=== PATIENT | male | born 1995 | race Caucasian/White ===

== ENCOUNTER 2016-04-27 19:29 | Emergency (ER) | payer OTHER ==
--- NOTE | 2016-04-27 19:41 | EDPHY ---
H & P Stated Complaint: 1030: PLAYING BASKETBALL/DID A LAY-UP, CAME DOWN HARD, NOW LOW BACK PAIN Time Seen by Provider: 04/27/16 19:41 - Personal History Current Tetanus/Diphtheria Vaccine: Yes - Medical/Surgical History Hx Asthma: No Hx Chronic Respiratory Disease: No Hx Diabetes: No Hx Cardiac Disease: No Hx Renal Disease: No Hx Cirrhosis: No Hx Alcoholism: No Hx HIV/AIDS: No Hx Splenectomy or Spleen Trauma: No Other PMH: FX WRIST, SURGERY FOR TORN GROIN - Social History Smoking Status: Former smoker Constitutional: Initial Vital Signs Temperature (C) 36.7 C 04/27/16 19:33 Heart Rate 103 H 04/27/16 19:33 Respiratory Rate 22 H 04/27/16 19:33 Blood Pressure 146/83 H 04/27/16 19:33 O2 Sat (%) 92 04/27/16 19:33 O2 Delivery Mode Room Air Allergies/Adverse Reactions: No Known Allergies Allergy (Unverified 04/27/16 19:32) Home Medications: Medication Instructions Recorded Hydrocodone/APAP 5/325 [[place] 1 - 2 each PO Q4-6PRN PRN #20 tab 04/27/16 5/325] Hydrocodone/APAP 5/325 [[place] 1 - 2 each PO Q4-6PRN PRN #20 tab 04/27/16 5/325] Medical Decision Making ED Course/Re-evaluation: CHIEF COMPLAINT: Back pain HISTORY OF PRESENT ILLNESS: The patient is a 20 y/o male arriving with his friend complaining of lower back pain and spasm secondary to a fall earlier today around 10:30, 10 hours ago. He was playing basketball, went up for a lay- up, then landed hard on his coccyx. He initially felt okay and was able to continue the day without much issue until tonight. He now complains of significant spasm and pain in his lumbar and gluteal region. He denies weakness , paresthesias, incontinence, or difficulty walking. No other injuries. REVIEW OF SYSTEMS: A 10 point review of systems was performed and is negative with the exception of the elements mentioned in the history of present illness. PHYSICAL EXAM: HR, BP, O2 Sat, RR. Temp noted General Appearance: Alert, well hydrated, appropriate, and non-toxic appearing. Head: Atraumatic without scalp tenderness or obvious injury Eyes: Pupils equal, round, reactive to light and accommodation, EOMI, no trauma , no injection. Ears: Clear bilaterally, no perforation, normal landmarks Nose: Atraumatic, no rhinorrhea, clear. Throat: There is no erythema or exudates, no lesions, normal tonsils, mucus membranes moist. Neck: Supple, 2+ carotid upstroke, nontender, no lymphadenopathy. Respiratory: No retractions, no distress, no wheezes, and no accessory muscle use. Lungs are clear to auscultation bilaterally. Cardiovascular: Regular rate and rhythm, no murmurs, rubs, or gallops. Bilateral carotid, radial, dorsalis pedis, and posterior tibial pulses intact. Good capillary refill all extremities. Gastrointestinal: Abdomen is soft, nontender, non-distended, no masses, no rebound, no guarding, no peritoneal signs. Musculoskeletal: Normal active ROM of all extremities, atraumatic. Neurological: Alert, appropriate, and interactive. The patient has normal DTRs and non-focal cranial nerves, motor, sensory, and cerebellar exam. Skin: No rashes, good turgor, no nodules on palpation. Past medical history: Denies Past surgical history: Denies Family history: Noncontributory Social history: Friend at bedside. Smoker. DIAGNOSTICS/PROCEDURES/CRITICAL CARE TIME: Study: Lumbar spine x-ray Indication: trauma, pain Results: Lumbar x-ray was obtained. The results of the study are nothing acute. The study was read by the radiologist, Dr. Aiken. I viewed the images myself on the PACS system. Study: Coccyx x-ray Indication: trauma, pain Results: Coccyx x-ray was obtained. The results of the study are nothing acute. The study was read by the radiologist, Dr. Aiken. I viewed the images myself on the PACS system. DIFFERENTIAL DIAGNOSIS: The differential diagnosis for the patient's trauma included but was not limited to intracranial injury, long bone and pelvic bone fractures, spinal injury, intra-abdominal injury, and intra-thoracic injury. MEDICAL DECISION MAKING: This is a healthy 20 y/o male presenting with lumbar pain and spasm secondary to a fall onto his coccyx earlier in the day. He has no reproducible pain on exam and denies radiculopathy or bowel/bladder dysfunction. His neuro exam is normal. Plan for x-rays of his lumbar and coccyx spine to rule out bony process. X-rays are negative. I discussed this with the patient. He will be discharged with Vicodin for pain and referral to PCP for follow up as needed. He is comfortable with this plan. Departure - Departure Disposition: Home, Routine, Self-Care Clinical Impression: Back pain Qualifiers: Back pain location: low back pain Chronicity: acute Back pain laterality: bilateral Sciatica presence: without sciatica Qualifier Code: (M54.5) Low back pain Condition: Good Instructions: Back Pain (ED) Additional Instructions: 1. Take Vicodin as prescribed when needed for pain. Expect to be more sore tomorrow. 2. Use 600mg ibuprofen every 6-8 hours for the next 2-3 days. 3. Follow up with your primary care provider for symptoms not improved over the next week. Referrals: [facility] [Outside] - As per Instructions Prescriptions: Hydrocodone/APAP 5/325 [[place] 5/325] 1 - 2 each PO Q4-6PRN PRN #20 tab PRN Reason: Pain, Moderate Report Scribed for: Juancarlos Rodriguez Report Scribed by: Pau Oakley Date of Report: 04/27/16 Time of Report: 19:50
[2016-04-27] MEDS ORDERED: HYDROCOD/APAP 5/325 PREPACK#6 BTL TAKEHOME ONE ×2 (19:50→20:18)
--- NOTE | 2016-04-27 20:26 | DX ---
Sacrum, Three Views History: Fall. Pain. Findings: No evidence for a fracture. Normal mineralization and alignment. No significant osseous abnormality. Impression: Unremarkable sacrum and coccyx, without evidence for a fracture. Lumbar Spine, Two Views History: Fall. Pain. Findings: Five lumbar-type vertebral bodies are visualized. No evidence for a fracture or subluxati on. Disk heights are maintained. On the AP view, there appears to be sclerosis at the sacroiliac salome ints but on the dedicated views obtained of the sacrum it has a more normal appearance and so, theref ore, likely sacroiliitis. Impression: No evidence for an acute fracture. E:thiago
[2016-04-27 20:45] VITALS: BP 147/69; PULSE 110; RESP 16; TEMP 97.7; O2SAT 94
== END 2016-04-27 20:45 | disposition home or self-care (01) ==
DX: S39.92XA Unspecified injury of lower back, initial encounter (principal); Z87.891 Personal history of nicotine dependence; W18.39XA Other fall on same level, initial encounter; Y99.8 Other external cause status; Y93.67 Activity, basketball

== ENCOUNTER 2016-05-11 23:05 | Emergency (ER) | payer OTHER ==
[2016-05-11 23:13] VITALS: TEMP 99.5
[2016-05-11] MEDS ORDERED: ONDANSETRON 4 MG/2 ML VIAL IVP ONE (23:25)
[2016-05-11] MEDS ORDERED: NS 1,000 ML IV ONE (23:25)
[2016-05-11 23:31] LABS: % IMMATURE GRANULYOCYTES 0.5 % (0.0-1.1); ABSOLUTE IMMATURE GRANULOCYTES 0.09 10^3/uL (0.00-0.10); ADD DIFF? NO; ADD MORPH? NO; ADD SCAN? NO; ATYPICAL LYMPHOCYTE FLAG 20 (0-99); FRAGMENT RBC FLAG 0 (0-99); HEMATOCRIT 42.4 % (40.0-51.0); HEMOGLOBIN 14.9 g/dL (13.7-17.5); LEFT SHIFT FLG 10 (0-99); LIPEMIA HEMOLYSIS FLAG 90 (0-99); MEAN CELL HEMOGLOBIN 30.1 pg (27.9-34.1); MEAN CELL HEMOGLOBIN CONCENTR. 35.1 g/dL (32.4-36.7); MEAN CELL VOLUME 85.7 fL (81.5-99.8); MEAN PLATELET VOLUME 9.6 fL (8.7-11.7); PLATELET CLUMPS FLAG 0 (0-99); PLATELET COUNT 242 10^3/uL (150-400); RED BLOOD CELL COUNT 4.95 10^6/uL (4.40-6.38); RED CELL DISTRIBUTION WIDTH 12.7 % (11.5-15.2)
--- NOTE | 2016-05-11 23:32 | EDPHY ---
H & P Stated Complaint: NVD and CM x 3 days Time Seen by Provider: 05/11/16 23:17 HPI/ROS: Chief complaint: Nausea, vomiting, diarrhea, headache HPI: 20-year-old male presenting with 3 days of nausea, vomiting, diarrhea and headache. Patient was initially seen at [facility] yesterday. He was told he had a bacterial infection and was prescribed antibiotics but has not had a chance to get this filled. He has had several days of cough with some whitish yellowish sputum. Some subjective fevers and chills. Has had nausea and vomiting yesterday with some diarrhea it yesterday, worsening today. Patient states that after 8 o'clock this evening he has been to the bathroom about 10 times. No blood or melena. No hematemesis. He does live in a fraternity house has been exposed to other similar symptoms. Headache is generalized and described as a 3 to 4/10. Did not his head. No numbness tingling. No other neurologic symptoms. ROS: 10 point Review of Systems is negative except as noted in the HPI. Past medical history: None Medications: None Allergies: No known drug allergies Physical exam: Gen: Awake, Alert, No Distress HEENT: Nose: no rhinorrhea Eyes: PERRLA, EOMI Mouth: Dry mucous membranes Neck: Supple, no JVD Chest: nontender, lungs clear to auscultation Heart: S1, S2 normal, no murmur Abd: Soft, non-tender, no guarding Back: no CVA tenderness, no midline tenderness Ext: no edema, non-tender Skin: no rash Neuro: CN II-XII intact, Sensation grossly intact, Strength 5/5 in bilateral upper and lower extremities - Personal History Current Tetanus Diphtheria and Acellular Pertussis (TDAP): Yes - Medical/Surgical History Hx Asthma: No Hx Chronic Respiratory Disease: No Hx Diabetes: No Hx Cardiac Disease: No Hx Renal Disease: No Hx Cirrhosis: No Hx Alcoholism: No Hx HIV/AIDS: No Hx Splenectomy or Spleen Trauma: No Other PMH: FX WRIST, SURGERY FOR TORN GROIN - Social History Smoking Status: Former smoker Constitutional: Initial Vital Signs Temperature (C) 37.5 C 05/11/16 23:10 Heart Rate 114 H 05/11/16 23:10 Respiratory Rate 20 05/11/16 23:10 Blood Pressure 161/92 H 05/11/16 23:10 O2 Sat (%) 96 05/11/16 23:10 O2 Delivery Mode Room Air Allergies/Adverse Reactions: No Known Allergies Allergy (Verified 05/11/16 23:12) Home Medications: Medication Instructions Recorded Hydrocodone/APAP 5/325 [[place] 1 - 2 each PO Q4-6PRN PRN #20 tab 04/27/16 5/325] Hydrocodone/APAP 5/325 [[place] 1 - 2 each PO Q4-6PRN PRN #20 tab 04/27/16 5/325] Ondansetron Odt [Zofran Odt 4 mg 4 mg PO Q4 PRN #10 tab 05/12/16 (*)] Medical Decision Making ED Course/Re-evaluation: 20-year-old male presenting with flu-like symptoms. Does have some erythema in pharyngeal exudate. Monospot is positive however the patient states he has pus tested positive for mono a year ago and I suspect he might have a carrier status. Symptoms are consistent with influenza. He does have a leukocytosis of monocytes. The bus supporting the possibility of mononucleosis. He does not have a neutrophilia. His abdomen is soft and nonfocal. He has gotten fluids, steroid it antipyretics. In addition to nausea medication. Will discharge with follow up with the [facility], return for worsening. - Data Points Laboratory Results: Laboratory Results 05/11/16 23:19 05/11/16 23:19 05/11/16 05/11/16 05/11/16 23:19 23:19 23:19 WBC 17.56 10^3/uL H 10^3/uL (3.80-9.50) RBC 4.95 10^6/uL 10^6/uL (4.40-6.38) Hgb 14.9 g/dL g/dL (13.7-17.5) Hct 42.4 % % (40.0-51.0) MCV 85.7 fL fL (81.5-99.8) MCH 30.1 pg pg (27.9-34.1) MCHC 35.1 g/dL g/dL (32.4-36.7) RDW 12.7 % % (11.5-15.2) Plt Count 242 10^3/uL 10^3/uL (150-400) MPV 9.6 fL fL (8.7-11.7) Neut % (Auto) 72.7 % % (39.3-74.2) Lymph % (Auto) 13.0 % L % (15.0-45.0) [place] % (Auto) 13.5 % H % (4.5-13.0) Eos % (Auto) 0.0 % L % (0.6-7.6) Baso % (Auto) 0.3 % % (0.3-1.7) Nucleat RBC Rel Count 0.0 % % (0.0-0.2) Absolute Neuts (auto) 12.76 10^3/uL H 10^3/uL (1.70-6.50) Absolute Lymphs (auto) 2.28 10^3/uL 10^3/uL (1.00-3.00) Absolute Monos (auto) 2.37 10^3/uL H 10^3/uL (0.30-0.80) Absolute Eos (auto) 0.00 10^3/uL L 10^3/uL (0.03-0.40) Absolute Basos (auto) 0.06 10^3/uL 10^3/uL (0.02-0.10) Absolute Nucleated RBC 0.00 10^3/uL 10^3/uL (0-0.01) Immature Gran % 0.5 % % (0.0-1.1) Immature Gran # 0.09 10^3/uL 10^3/uL (0.00-0.10) Sodium 132 mEq/L L mEq/L (134-144) Potassium 3.6 mEq/L mEq/L (3.5-5.2) Chloride 95 mEq/L L mEq/L (97-110) Carbon Dioxide 21 mEq/l L mEq/l (22-31) Anion Gap 16 mEq/L mEq/L (8-16) BUN 9 mg/dL mg/dL (7-23) Creatinine 0.9 mg/dL mg/dL (0.7-1.3) Estimated GFR > 60 Glucose 116 mg/dL H mg/dL (70-100) Calcium 9.4 mg/dL mg/dL (8.5-10.4) Total Bilirubin 1.0 mg/dL mg/dL (0.1-1.4) Conjugated Bilirubin 0.5 mg/dL mg/dL (0.0-0.5) Unconjugated Bilirubin 0.5 mg/dL mg/dL (0.0-1.1) AST 32 IU/L IU/L (17-59) ALT 36 IU/L IU/L (21-72) Alkaline Phosphatase 99 IU/L IU/L (38-126) Total Protein 8.7 g/dL H g/dL (6.3-8.2) Albumin 4.8 g/dL g/dL (3.5-5.0) Lipase 57.0 IU/L IU/L (23-300) Monoscreen POSITIVE H (NEGATIVE) Medications Given: Discontinued Medications Sodium Chloride (Ns) 1,000 mls @ 0 mls/hr IV ONCE ONE PRN Reason: Wide Open Stop: 05/11/16 23:26 Last Admin: 05/12/16 00:00 Dose: 1,000 mls Ondansetron HCl (Zofran) 4 mg IVP EDNOW ONE Stop: 05/11/16 23:26 Last Admin: 05/12/16 00:14 Dose: 4 mg Departure - Departure Disposition: Home, Routine, Self-Care Clinical Impression: Flu-like symptoms, Dehydration, Nausea & vomiting, Fever Condition: Good Instructions: Fever in Adults (ED), Gastroenteritis (ED), Acute Nausea and Vomiting (ED) Additional Instructions: Alternate ibuprofen and acetaminophen every 4 hours for aches, pains, and fever. You may take ondansetron for nausea and vomiting. Drink plenty of fluids. Follow up with [facility] in 2-3 days if symptoms are not improving. Return emergency department if symptoms are worsening. Referrals: Patient,NotPresent [Unknown] - As per Instructions [facility] [Outside] - As per Instructions Prescriptions: Ondansetron Odt [Zofran Odt 4 mg (*)] 4 mg PO Q4 PRN #10 tab PRN Reason: nausea
[2016-05-11] MEDS ORDERED: IBUPROFEN 600 MG TAB PO ONE (23:45)
[2016-05-11 23:55] LABS: ALANINE AMINOTRANSFERASE 36 IU/L (21-72); ALBUMIN 4.8 g/dL (3.5-5.0); ALKALINE PHOSPHATASE 99 IU/L (38-126); ANION GAP 16 mEq/L (8-16); ASPARTATE AMINOTRANSFERASE 32 IU/L (17-59); BILIRUBIN-CONJUGATED 0.5 mg/dL (0.0-0.5); BILIRUBIN-UNCONJUGATED 0.5 mg/dL (0.0-1.1); CALCIUM 9.4 mg/dL (8.5-10.4); CARBON DIOXIDE 21 mEq/l (22-31); CHLORIDE 95 mEq/L (97-110); CREATININE 0.9 mg/dL (0.7-1.3); GLOMERULAR FILTRATION RATE > 60; GLUCOSE 116 mg/dL (70-100); POTASSIUM 3.6 mEq/L (3.5-5.2); SODIUM 132 mEq/L (134-144); TOTAL PROTEIN 8.7 g/dL (6.3-8.2)
[2016-05-12] MEDS ORDERED: ONDANSETRON 4MG PREPACK#2 BTL TAKEHOME ONE (01:28)
[2016-05-12] MEDS ORDERED: DEXAMETHASONE 4 MG TAB PO ONE (01:29)
[2016-05-12] MEDS ORDERED: DEXAMETHASONE 10 MG/ML VIAL ONE (01:48)
[2016-05-12 02:21] VITALS: BP 144/68; PULSE 100; RESP 18; O2SAT 94
== END 2016-05-12 02:47 | disposition home or self-care (01) ==
DX: R11.2 Nausea with vomiting, unspecified (principal); J11.1 Influenza due to unidentified influenza virus with other respiratory manifestations; Z87.891 Personal history of nicotine dependence
CPT/HCPCS: 96374; J2405

== ENCOUNTER 2018-01-03 21:46 | Emergency (ER) | payer OTHER ==
[2018-01-03] MEDS ORDERED: NS 1,000 ML IV ONE (22:10)
[2018-01-03 22:30] LABS: PLATELET COUNT 352 10^3/uL (150-400)
--- NOTE | 2018-01-03 23:09 | EDPHY ---
H & P Stated Complaint: had one beer vomited and syncope episode x2 lasting 2 min Time Seen by Provider: 01/03/18 22:09 HPI/ROS: CHIEF COMPLAINT: Syncope, vomiting HISTORY OF PRESENT ILLNESS: 22-year-old male presents with syncope and vomiting. He was playing a drinking game with his friends just prior to arrival. He walked away from the game after spinning around quickly (part of the game). He then had 1 episode of vomiting, followed by a syncopal episode. He had seizure-like activity after he fell to the ground. He when he awoke, he was not confused. Now asymptomatic. Unclear if he hit his head, but no headache or neck pain. REVIEW OF SYSTEMS: complete 10 point ROS reviewed and is negative except for the noted elements in the HPI - Personal History Current Tetanus/Diphtheria Vaccine: Yes Current Tetanus Diphtheria and Acellular Pertussis (TDAP): Yes - Medical/Surgical History Hx Asthma: No Hx Chronic Respiratory Disease: No Hx Diabetes: No Hx Cardiac Disease: No Hx Renal Disease: No Hx Cirrhosis: No Hx Alcoholism: No Hx HIV/AIDS: No Hx Splenectomy or Spleen Trauma: No Other PMH: FX WRIST, SURGERY FOR TORN GROIN - Social History Smoking Status: Current every day smoker Alcohol Use: Other (moderate alcohol today) Additional Social History: Student at [employer] - Physical Exam Exam: General Appearance: Alert, pleasant, appears intoxicated Eyes: Pupils equal and round, no conjunctival pallor or injection ENT, Mouth: Mucous membranes moist Neck: Normal inspection Respiratory: Lungs are clear to auscultation Cardiovascular: Regular rate and rhythm, no murmur Gastrointestinal: Abdomen is soft and nontender Neurological: Alert, oriented x3, cranial nerves II through XII intact, motor 5 /5, sensory intact to light touch Skin: Warm and dry, no rash Extremities: Nontender, no pedal edema Psychiatric: Mood and affect normal Constitutional: Initial Vital Signs Temperature (C) 37.2 C 01/03/18 21:56 Heart Rate 92 01/03/18 21:56 Respiratory Rate 16 01/03/18 21:56 Blood Pressure 119/77 01/03/18 21:56 O2 Sat (%) 93 01/03/18 21:56 O2 Delivery Mode Room Air Allergies/Adverse Reactions: No Known Allergies Allergy (Verified 01/03/18 22:00) Medical Decision Making - Diagnostics EKG Interpretation: EKG interpreted by me reveals sinus arrhythmia, rate 70, no ST or T changes. Interpretation: normal EKG ED Course/Re-evaluation: This patient presents after a syncopal episode. I do not suspect primary seizure in this patient. Stat EKG reveals no evidence of ischemia or dysrhythmia. CBC and electrolytes are normal. threat monitoring analyst revealed normal sinus rhythm throughout. Patient asymptomatic on discharge. Will discharge home. Warning signs discussed. Differential Diagnosis: Differential diagnosis includes though is not limited to cardiac dysrhythmia, CVA, TIA, GI bleed, sepsis, hypoglycemia. - Data Points Laboratory Results: Laboratory Results 01/03/18 22:20 01/03/18 22:20 Medications Given: Discontinued Medications Sodium Chloride (Ns) 1,000 mls @ 0 mls/hr IV EDNOW ONE; Wide Open PRN Reason: Protocol Stop: 01/03/18 22:11 Last Admin: 01/03/18 22:28 Dose: 1,000 mls Departure - Departure Disposition: Home, Routine, Self-Care Clinical Impression: Syncope Condition: Good Instructions: Syncope (ED) Referrals: [facility],. [Clinic] - As per Instructions
[2018-01-03 23:30] VITALS: BP 135/73
--- NOTE | 2018-01-05 13:11 | CPEKG ---
Test Reason : OPEN Blood Pressure : / mmHG Vent. Rate : 069 BPM Atrial Rate : 069 BPM P-R Int : 163 ms QRS Dur : 086 ms QT Int : 406 ms P-R-T Axes : 042 069 039 degrees QTc Int : [address] elev, probable normal early repol pattern Confirmed by Ruth David ([id number]) on 01/05/2018 1:10:41 PM Referred By: Confirmed By:Ruth David
== END 2018-01-03 23:30 | disposition home or self-care (01) ==
DX: R55 Syncope and collapse (principal); E86.9 Volume depletion, unspecified
CPT/HCPCS: 80305; G0480

== ENCOUNTER → 2018-07-28 | Outpatient (CLI) | payer OTHER | LOC: FIMAGING 09:59 | PROVIDERS: ATTEND Psychiatry & Neurology Neurology | DX: G43.909 Migraine, unspecified, not intractable, without status migrainosus (principal) ==